=== PATIENT | male | born 1980 | race Two or more races ===

== ENCOUNTER 2019-08-22 13:04 | Emergency (ER) | payer SELFPAY ==
[~2019-08-22] VITALS: Ht 175.3 cm; Wt 107.7 kg
[2019-08-22] MEDS ORDERED: MVI, ADULT NO.4 WITH VIT K 10 ML, FOLIC ACID INJ 1 MG, THIAMINE INJ 100 MG in IV NORMAL... IV ONE ×4 (13:30)
[2019-08-22 13:47] LABS: BASO # 0.1 x10^3/uL (0.0-0.2); BASO % 1 % (0-3); EOS % 0 % (0-3); HEMATOCRIT 49.3 % (39.0-53.0); HEMOGLOBIN 16.9 g/dL (13.0-17.5); LYMPH # 3.1 x10^3/uL (1.0-4.8); LYMPH % 33 % (24-48); MEAN CORPUSCULAR HEMOGLOBIN 29 pg (25-35); MEAN CORPUSCULAR HGB CONC 34 g/dL (31-37); MEAN CORPUSCULAR VOLUME 85 fL (79-100); MONO # 0.4 x10^3/uL (0.0-1.1); MONO % 4 % (0-9); NEUT # 5.9 x10^3uL (1.8-7.7); NEUT % 62 % (31-73); PLATELET COUNT 320 x10^3/uL (140-400); RED BLOOD COUNT 5.84 x10^6/uL (4.30-5.70); RED CELL DISTRIBUTION WIDTH 14.5 % (11.5-14.5); WHITE BLOOD COUNT 9.4 x10^3/uL (4.0-11.0)
[2019-08-22 14:01] LABS: ACETAMIN < 2.0 mcg/mL (10-30); ETHANOL 370 mg/dL (0-10); SALIC 0.3 mg/dL (2.8-20.0)
[2019-08-22 14:46] LABS: BILIRUBIN,URINE NEG (NEG); CLARITY,URINE CLOUDY; COLOR,URINE AMBER; GLUCOSE,URINE NEG (NEG)
[2019-08-22 14:47] LABS: BACTERIA,URINE FEW /HPF (0-FEW); GRANULAR CASTS,URINE OCC /HPF; HYALINE CASTS, URINE FEW /HPF; NITRITE,URINE NEG (NEG); SQUAMOUS EPITHELIAL CELL,UR OCC /LPF; UROBILINOGEN,URINE 0.2 mg/dL (0.2 mg/dL)
[2019-08-22 14:48] LABS: AMPHETAMINE/METHAMPHETAMINE NEG (NEG); BARBITURATES NEG (NEG); BENZODIAZEPINES NEG (NEG); CANNABINOIDS POS (NEG); COCAINE NEG (NEG); METHADONE NEG (NEG); OPIATES NEG (NEG); PHENCYCLIDINE NEG (NEG)
[2019-08-22 15:10] VITALS: BP 158/124
[2019-08-22 15:13] LABS: CALCIUM 7.8 mg/dL (8.5-10.1); CREATININE 0.9 mg/dL (0.7-1.3); POTASSIUM 3.2 mmol/L (3.5-5.1)
[2019-08-22 15:17] LABS: ALBUMIN 3.4 g/dL (3.4-5.0); ALBUMIN/GLOBULIN RATIO 0.9 (1.0-1.7); TOTAL BILIRUBIN 0.4 mg/dL (0.2-1.0); TOTAL PROTEIN 7.3 g/dL (6.4-8.2)
--- NOTE | 2019-08-22 16:10 | PHYS DOC ---
Past History Past Medical History: Alcoholism Past Medical History Limited due to patient uncooperative/intoxicated Past Surgical History Limited due to patient uncooperative/intoxicated Alcohol Use: Heavy Social History Limited due to patient uncooperative/intoxicated Adult General Chief Complaint Chief Complaint: ALCOHOL INTOXICATION HPI HPI 39 year old male presents via EMS with report of acute intoxication/altered mental status after being found today. Patient apparently has been missing per his spouse for last 3 days. Patient not forthcoming with w here he has been, however he did reports history of ETOH abuse. Reports he drank "alot". Denies suicidal ideation. Denies history of DTs. Patient denies trauma. EMS denies seeing any signs of trauma as well. EMS reports prehospital glucose normal. HPI limited due to altered mental status/intoxication. Review of Systems Review of Systems Review of systems limited due to altered mental status/intoxication. Current Medications Current Medications Current Medications Medications (Trade) Dose Ordered Sig/Oniel Start Time Stop Time Status Last Admin Dose Admin Multivitamins/ Minerals 10 ml/ Folic Acid 1 mg/ Thiamine HCl 100 mg/Sodium Chloride 1,011.3 ml @ 1,000.187 mls/hr 1X ONCE 08/22/19 13:30 08/22/19 14:30 DC 08/22/19 14:15 1,000.187 MLS/HR Allergies Allergies Allergies Coded Allergies Type Severity Reaction Last Updated Verified No Known Drug Allergies 08/22/19 No Physical Exam Physical Exam Constitutional: Well developed, disheveled, no acute distress, non-toxic appearance HENT: Normocephalic, atraumatic, oropharynx moist. Eyes: Pupils dilated, EOMI, conjunctiva injected, no discharge, horizontal n ystagmus noted Neck: Normal range of motion, no tenderness, supple Cardiovascular: Heart rate tachycardic, regular rhythm Lungs & Thorax: Bilateral breath sounds clear to auscultation, no wheezes Abdomen: Soft, no tenderness Skin: Warm, dry, no erythema, no rash Extremities: No tenderness, ROM intact Neurologic: Alert and oriented to name only, appears intoxicated, moves all extremities and will follow commands and answer some questions, no focal deficits noted Psychologic: Affect obtunded, judgement poor Current Patient Data Vital Signs Vital Signs Date Time Temp Pulse Resp B/P (MAP) Pulse Ox O2 Delivery O2 Flow Rate FiO2 08/22/19 15:13 145 19 100 Room Air Lab Results Laboratory Tests Test 08/22/19 13:32 08/22/19 14:10 White Blood Count 9.4 x10^3/uL (4.0-11.0) Red Blood Count 5.84 x10^6/uL (4.30-5.70) H Hemoglobin 16.9 g/dL (13.0-17.5) Hematocrit 49.3 % (39.0-53.0) Mean Corpuscular Volume 85 fL (79-100) Mean Corpuscular Hemoglobin 29 pg (25-35) Mean Corpuscular Hemoglobin Concent 34 g/dL (31-37) Red Cell Distribution Width 14.5 % (11.5-14.5) Platelet Count 320 x10^3/uL (140-400) Neutrophils (%) (Auto) 62 % (31-73) Lymphocytes (%) (Auto) 33 % (24-48) Monocytes (%) (Auto) 4 % (0-9) Eosinophils (%) (Auto) 0 % (0-3) Basophils (%) (Auto) 1 % (0-3) Neutrophils # (Auto) 5.9 x10^3uL (1.8-7.7) Lymphocytes # (Auto) 3.1 x10^3/uL (1.0-4.8) Monocytes # (Auto) 0.4 x10^3/uL (0.0-1.1) Eosinophils # (Auto) 0.0 x10^3/uL (0.0-0.7) Basophils # (Auto) 0.1 x10^3/uL (0.0-0.2) Prothrombin Time 11.0 SEC (9.4-11.4) Prothrombin Time INR 1.1 (0.9-1.1) Activated Partial Thromboplast Time 26 SEC (23-33) Sodium Level 146 mmol/L (136-145) H Potassium Level 3.2 mmol/L (3.5-5.1) L Chloride Level 106 mmol/L (98-107) Carbon Dioxide Level 24 mmol/L (21-32) Anion Gap 16 (6-14) H Blood Urea Nitrogen 16 mg/dL (8-26) Creatinine 0.9 mg/dL (0.7-1.3) Estimated GFR (Cockcroft-Gault) 95.0 BUN/Creatinine Ratio 18 (6-20) Glucose Level 143 mg/dL (70-99) H Calcium Level 7.8 mg/dL (8.5-10.1) L Magnesium Level 2.0 mg/dL (1.8-2.4) Total Bilirubin 0.4 mg/dL (0.2-1.0) Aspartate Amino Transferase (AST) 43 U/L (15-37) H Alanine Aminotransferase (ALT) 85 U/L (16-63) H Alkaline Phosphatase 90 U/L (46-116) Creatine Kinase 89 U/L (39-308) Creatine Kinase MB (Mass) 1.0 ng/mL (0.0-3.6) Creatine Kinase MB Relative Index 1.1 % (0-4) Troponin I Quantitative 0.033 ng/mL (0-0.055) Total Protein 7.3 g/dL (6.4-8.2) Albumin 3.4 g/dL (3.4-5.0) Albumin/Globulin Ratio 0.9 (1.0-1.7) L Salicylates Level 0.3 mg/dL (2.8-20.0) L Salicylate Last Dose Date Unknown Salicylate Last Dose Time Unknown Acetaminophen Level < 2.0 mcg/mL (10-30) L Acetaminophen Last Dose Date Unknown Acetaminophen Last Dose Time Unknown Ethyl Alcohol Level 370 mg/dL (0-10) H Urine Collection Type Unknown Urine Color Melanie Urine Clarity Cloudy Urine pH 6.0 Urine Specific [place] >=1.030 Urine Protein >100 mg/dl (NEG-TRACE) Urine Glucose (UA) Neg mg/dL (NEG) Urine Ketones (Stick) Neg mg/dL (NEG) Urine Blood Small (NEG) Urine Nitrite Neg (NEG) Urine Bilirubin Neg (NEG) Urine Urobilinogen Dipstick 0.2 mg/dL (0.2 mg/dL) Urine Leukocyte Esterase Neg (NEG) Urine RBC 1-2 /HPF (0-2) Urine WBC 1-4 /HPF (0-4) Urine Squamous Epithelial Cells Occ /LPF Urine Bacteria Few /HPF (0-FEW) Urine Hyaline Casts Few /HPF Urine Granular Casts Occ /HPF Urine Mucus Mod /LPF Urine Opiates Screen Neg (NEG) Urine Methadone Screen Neg (NEG) Urine Barbiturates Neg (NEG) Urine Phencyclidine Screen Neg (NEG) Urine Amphetamine/Methamphetamine Neg (NEG) Urine Benzodiazepines Screen Neg (NEG) Urine Cocaine Screen Neg (NEG) Urine Cannabinoids Screen Pos (NEG) Urine Ethyl Alcohol Pos (NEG) EKG EKG @ 1328 Sinus tachycardia at 128bpm, NO ST elevation, QRS 86ms, QT/QTc 314/462ms, Q wave III Radiology/Procedures Radiology/Procedures [] Course & Med Decision Making Course & Med Decision Making Pertinent Labs studies reviewed. (See chart for details) Patient presents with via EMS with report of being "missing" per his for last 3 days. Patient brought to ED after being found and appears intoxicated. Patient reports he has "drank alot". Patient initially not forthcoming with history. Ultimately reports he has history of alcoholism and has been drinking "tequila". Denies suicidal ideation. Denies history of DTs. Banana bag provided. Labs obtained and posted to chart. Patient monitored in department. Discharge paperwork readied. Patient asked to call for a ride. Prior to discharge paperwork printed it was found that patient had gotten up to use restroom and subsequently eloped from department. At that time patient was clinically sober and with steady gait. Verbal instructions had been given to patient prior to his elopement including that he should seek ETOH and drug addiction clinic and seek help with his addictions. Patient acknowledged understanding and agreement. Unfortunately he did not receive discharge packet including these resource addresses and phone numbers. Dragon Disclaimer Dragon Disclaimer This electronic medical record was generated, in whole or in part, using a voice recognition dictation system. Departure Departure: Impression: Primary Impression: Alcohol abuse Additional Impression: Tetrahydrocannabinol (THC) use disorder, mild, abuse Disposition: 07 AGAINST MEDICAL ADVICE (Eloped) Condition: GUARDED Referrals: PCP,NO (PCP) Patient Instructions: Alcohol and Drug Addiction, Finding Treatment, Chronic Alcoholism, How Much is Too Much Alcohol, [id number] Additional Instructions: Please check yourself into a drug and alcohol rehab facility. Problem Qualifiers TOM HENLEY DO Aug 22, 2019 16:10
--- NOTE | 2019-08-22 17:30 | EKG ---
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
== END 2019-08-22 16:10 | disposition left against medical advice (07) ==
LOC: ER 13:04
DX: F10.10 Alcohol abuse, uncomplicated (principal); F15.10 Other stimulant abuse, uncomplicated; Y90.8 Blood alcohol level of 240 mg/100 ml or more
CPT/HCPCS: 36415; 80053; 80307; 80329; 81001; 82553; 83735; 84484; 85025; 85610; 85730; 93005; 96365; 99284; G0480; 82003; J7030

== ENCOUNTER 2019-11-20 15:23 | Emergency (ER) | payer OTHER ==
[~2019-11-20] VITALS: Ht 182.9 cm; Wt 107.3 kg
[2019-11-20 15:25] VITALS: BP 116/98
--- NOTE | 2019-11-20 15:44 | PHYS DOC ---
General Adult EDM: Chief Complaint: ALCOHOL INTOXICATION HPI: HPI: Patient is a 59-year-old alcoholic male who brought in by EMS because he could not pay for his room at the account of [facility]. Apparently his family will take him back home. He denies any suicidal or homicidal ideation. He states he drin ks heavily every day and today is no different than usual. [] Review of Systems: Review of Systems: Constitutional: Denies fever or chills Eyes: Denies change in visual acuity HENT: Denies nasal congestion or sore throat Respiratory: Denies cough or shortness of breath Cardiovascular: Denies chest pain or edema GI: Denies abdominal pain, nausea, vomiting, bloody stools or diarrhea : Denies dysuria Musculoskeletal: Denies back pain or joint pain Integument: Denies rash Neurologic: Denies headache, focal weakness or sensory changes Endocrine: Denies polyuria or polydipsia Lymphatic: Denies swollen glands Psychiatric: Reports alcoholism Heart Score: Risk Factors: Risk Factors: DM, Current or recent (<one month) smoker, HTN, HLP, family history of CAD, obesity. Risk Scores: Score 0 - 3: 2.5% MACE over next 6 weeks - Discharge Home Score 4 - 6: 20.3% MACE over next 6 weeks - Admit for Clinical Observation Score 7 - 10: 72.7% MACE over next 6 weeks - Early Invasive Strategies Allergies: Allergies: Allergies Coded Allergies Type Severity Reaction Last Updated Verified No Known Drug Allergies 11/20/19 No Physical Exam: PE: Constitutional: Well developed, well nourished, no acute distress, appears intoxicated e. [] HENT: Normocephalic, atraumatic, bilateral external ears normal, oropharynx moist, no oral exudates, nose normal. [] Eyes: PERRLA, EOMI, conjunctiva normal, no discharge. [] Neck: Normal range of motion, no tenderness, supple, no stridor. [] Cardiovascular:Heart rate regular rhythm, no murmur [] Lungs & Thorax: Bilateral breath sounds clear to auscultation [] Abdomen: Bowel sounds normal, soft, no tenderness, no masses, no pulsatile masses. [] Skin: Warm, dry, no erythema, no rash. [] Back: No tenderness, no CVA tenderness. [] Extremities: No tenderness, no cyanosis, no clubbing, ROM intact, no edema. [] Neurologic: Alert and oriented X 3, normal motor function, normal sensory function, no focal deficits noted. [] Psychologic: Depressed affect but denies suicidal or homicidal thoughts [] EKG: EKG: [] Radiology/Procedures: Radiology/Procedures: [] Course & Med Decision Making: Course & Med Decision Making Pertinent Labs and Imaging studies reviewed. (See chart for details) [ED course: Evaluation reveals a 59-year-old male who was intoxicated. It does not appear that he has any medical emergency today. It appears he is in his usual state of intoxication secondary to longstanding alcoholism.] Dragon Disclaimer: Dragon Disclaimer: This electronic medical record was generated, in whole or in part, using a voice recognition dictation system. Departure Departure: Impression: Primary Impression: Alcohol intoxication Qualified Codes: F10.920 - Alcohol use, unspecified with intoxication, uncomplicated Disposition: 01 HOME/RESIDENCE PRIOR TO ADM Condition: STABLE Referrals: PCP,NO (PCP) Patient Instructions: Alcohol Intoxication, Alcohol Problems, Chronic Alcoholism Additional Instructions: Return to the emergency department with any new or concerning symptoms BK MORALES DO November 20, 2019 15:44
== END 2019-11-20 17:29 | disposition home or self-care (01) ==
LOC: EDBD 15:23 → MERGE 15:23 → ER 15:23
DX: F10.920 Alcohol use, unspecified with intoxication, uncomplicated (principal); F32.9 Major depressive disorder, single episode, unspecified
CPT/HCPCS: 99283

== ENCOUNTER 2019-12-23 19:52 | Emergency (ER) | payer OTHER ==
[~2019-12-23] VITALS: Ht 175.3 cm; Wt 107.7 kg
[2019-12-23] MEDS ORDERED: MULTIVITAMIN with MINERAL TABLET. PO ONE (20:00)
[2019-12-23] MEDS ORDERED: FOLIC ACID 1 MG TABLET PO ONE (20:00)
[2019-12-23] MEDS ORDERED: THIAMINE 100 MG TABLET. PO ONE (20:00)
[2019-12-23] MEDS ORDERED: MVI, ADULT NO.4 WITH VIT K 10 ML, FOLIC ACID INJ 1 MG, THIAMINE INJ 100 MG in IV NORMAL... IV ONE ×4 (20:30)
[2019-12-23 20:31] LABS: BASO % 0 % (0-3); EOS % 0 % (0-3); HEMATOCRIT 40.4 % (39.0-53.0); LYMPH % 27 % (24-48); MEAN CORPUSCULAR HEMOGLOBIN 29 pg (25-35); MEAN CORPUSCULAR HGB CONC 35 g/dL (31-37); MEAN CORPUSCULAR VOLUME 84 fL (79-100); MONO # 0.5 x10^3/uL (0.0-1.1); MONO % 4 % (0-9); NEUT # 10.2 x10^3uL (1.8-7.7); NEUT % 69 % (31-73); PLATELET COUNT 301 x10^3/uL (140-400); RED BLOOD COUNT 4.83 x10^6/uL (4.30-5.70); RED CELL DISTRIBUTION WIDTH 14.9 % (11.5-14.5); WHITE BLOOD COUNT 14.7 x10^3/uL (4.0-11.0)
[2019-12-23 20:42] LABS: ANION GAP 13 (6-14); BLOOD UREA NITROGEN 16 mg/dL (8-26); CALCIUM 7.8 mg/dL (8.5-10.1); CARBON DIOXIDE 25 mmol/L (21-32); CHLORIDE 107 mmol/L (98-107); CREATININE 1.2 mg/dL (0.7-1.3); GFR 68.1; GLUCOSE 120 mg/dL (70-99); POTASSIUM 3.4 mmol/L (3.5-5.1); SODIUM 145 mmol/L (136-145)
[2019-12-23 20:48] LABS: ALBUMIN 3.7 g/dL (3.4-5.0); ALK PHOS 75 U/L (46-116); ALT (SGPT) 79 U/L (16-63); MAGNESIUM 2.3 mg/dL (1.8-2.4); TOTAL BILIRUBIN 0.4 mg/dL (0.2-1.0); TOTAL PROTEIN 7.4 g/dL (6.4-8.2)
[2019-12-23 20:53] LABS: DIRECT BILIRUBIN < 0.1 mg/dL (0.0-0.2)
[2019-12-23] MEDS ORDERED: THIAMINE 200 MG/2 ML VIAL. IV ONE (21:04)
[2019-12-23 21:11] LABS: AST (SGOT) 66 U/L (15-37)
[2019-12-23] MEDS ORDERED: IV NORMAL SALINE 1,000ML 1,000 ML IV ONE (21:30)
[2019-12-23 22:38] LABS: BARBITURATES NEG (NEG); BENZODIAZEPINES NEG (NEG); CANNABINOIDS NEG (NEG); COCAINE NEG (NEG); METHADONE NEG (NEG); OPIATES NEG (NEG); PHENCYCLIDINE NEG (NEG)
[2019-12-23 22:43] LABS: BILIRUBIN,URINE NEG (NEG); CLARITY,URINE CLEAR; COLOR,URINE YELLOW; GLUCOSE,URINE NEG (NEG); NITRITE,URINE NEG (NEG); RBC,URINE OCC /HPF (0-2); UROBILINOGEN,URINE 0.2 mg/dL (0.2 mg/dL)
[2019-12-23 22:44] LABS: BACTERIA,URINE 0 /HPF (0-FEW); HYALINE CASTS, URINE FEW /HPF; SQUAMOUS EPITHELIAL CELL,UR FEW /LPF
[2019-12-23 22:50] LABS: AMPHETAMINE/METHAMPHETAMINE NEG (NEG)
--- NOTE | 2019-12-24 02:09 | PHYS DOC ---
Past History Past Medical History: Alcoholism Additional Past Medical Histor: pt denies Past Surgical History: Other Additional Past Surgical Histo: pt denies Alcohol Use: Heavy General Adult EDM: Chief Complaint: ALCOHOL INTOXICATION HPI: HPI: Patient is a 39-year-old male who arrives via EMS with report of alcohol intoxication. Per EMS, patient did not go home last night and patient's indicated that he would typically go to a certain hotel where he would go drink. She went and found him at the hotel where he was unconscious. EMS indicates that he will respond to verbal stimuli but does not answer questions. [] Review of Systems: Review of Systems: Constitutional: No reported fever or chills Respiratory: No apparent shortness of breath GI: No reported vomiting Neurologic: Positive mental status changes Unable to fully assess review of systems due to patient mental state/level of intoxication Heart Score: Risk Factors: Risk Factors: DM, Current or recent (<one month) smoker, HTN, HLP, family history of CAD, obesity. Risk Scores: Score 0 - 3: 2.5% MACE over next 6 weeks - Discharge Home Score 4 - 6: 20.3% MACE over next 6 weeks - Admit for Clinical Observation Score 7 - 10: 72.7% MACE over next 6 weeks - Early Invasive Strategies Current Medications: Current Meds: Current Medications Medications (Trade) Dose Ordered Sig/Oniel Start Time Stop Time Status Last Admin Dose Admin Folic Acid (Folic Acid) 1 mg 1X ONCE 12/23/19 20:00 12/23/19 20:31 DC Multivitamins/ Calcium (Thera-M Plus) 1 tab 1X ONCE 12/23/19 20:00 12/23/19 20:31 DC Multivitamins/ Minerals 10 ml/ Folic Acid 1 mg/ Thiamine HCl 100 mg/Sodium Chloride 1,011.3 ml @ 1,000.187 mls/hr 1X ONCE 12/23/19 20:30 12/23/19 21:30 DC 12/23/19 21:10 1,000.187 MLS/HR Sodium Chloride 1,000 ml @ 1,000 mls/hr 1X ONCE 12/23/19 21:30 12/23/19 22:29 DC 12/23/19 21:11 1,000 MLS/HR Thiamine HCl (Thiamine Vial) 200 mg STK-MED ONCE 12/23/19 21:04 12/23/19 21:04 DC Thiamine HCl (Vitamin B-1) 100 mg 1X ONCE 12/23/19 20:00 12/23/19 20:31 DC Allergies: Allergies: Allergies Coded Allergies Type Severity Reaction Last Updated Verified No Known Drug Allergies 08/22/19 No Physical Exam: PE: Constitutional: Well developed, well nourished, no acute distress, non-toxic appearance. [] HENT: Normocephalic, atraumatic, bilateral external ears normal, oropharynx moist, no oral exudates, nose normal. [] Eyes: PERRLA, EOMI, conjunctiva normal, no discharge. [] Neck: Normal range of motion, no tenderness, supple, no stridor. [] Cardiovascular:Heart rate regular rhythm, no murmur [] Lungs & Thorax: Bilateral breath sounds clear to auscultation [] Abdomen: Bowel sounds normal, soft, no tenderness, no masses, no pulsatile masses. [] Skin: Warm, dry, no erythema, no rash. [] Extremities: No tenderness, no cyanosis, no clubbing, ROM intact, no edema. [] Neurologic: Somnolent but arousable to both verbal and painful stimuli, no obvious focal deficits noted. [] Current Patient Data: Labs: Laboratory Tests Test 12/23/19 20:05 12/23/19 22:15 White Blood Count 14.7 x10^3/uL (4.0-11.0) H Red Blood Count 4.83 x10^6/uL (4.30-5.70) Hemoglobin 14.0 g/dL (13.0-17.5) Hematocrit 40.4 % (39.0-53.0) Mean Corpuscular Volume 84 fL (79-100) Mean Corpuscular Hemoglobin 29 pg (25-35) Mean Corpuscular Hemoglobin Concent 35 g/dL (31-37) Red Cell Distribution Width 14.9 % (11.5-14.5) H Platelet Count 301 x10^3/uL (140-400) Neutrophils (%) (Auto) 69 % (31-73) Lymphocytes (%) (Auto) 27 % (24-48) Monocytes (%) (Auto) 4 % (0-9) Eosinophils (%) (Auto) 0 % (0-3) Basophils (%) (Auto) 0 % (0-3) Neutrophils # (Auto) 10.2 x10^3uL (1.8-7.7) H Lymphocytes # (Auto) 4.0 x10^3/uL (1.0-4.8) Monocytes # (Auto) 0.5 x10^3/uL (0.0-1.1) Eosinophils # (Auto) 0.0 x10^3/uL (0.0-0.7) Basophils # (Auto) 0.0 x10^3/uL (0.0-0.2) Sodium Level 145 mmol/L (136-145) Potassium Level 3.4 mmol/L (3.5-5.1) L Chloride Level 107 mmol/L (98-107) Carbon Dioxide Level 25 mmol/L (21-32) Anion Gap 13 (6-14) Blood Urea Nitrogen 16 mg/dL (8-26) Creatinine 1.2 mg/dL (0.7-1.3) Estimated GFR (Cockcroft-Gault) 68.1 Glucose Level 120 mg/dL (70-99) H Calcium Level 7.8 mg/dL (8.5-10.1) L Magnesium Level 2.3 mg/dL (1.8-2.4) Total Bilirubin 0.4 mg/dL (0.2-1.0) Direct Bilirubin < 0.1 mg/dL (0.0-0.2) Aspartate Amino Transferase (AST) 66 U/L (15-37) H Alanine Aminotransferase (ALT) 79 U/L (16-63) H Alkaline Phosphatase 75 U/L (46-116) Total Protein 7.4 g/dL (6.4-8.2) Albumin 3.7 g/dL (3.4-5.0) Ethyl Alcohol Level 447 mg/dL (0-10) *H Urine Collection Type Unknown Urine Color Yellow Urine Clarity Clear Urine pH 6.0 Urine Specific [place] 1.010 Urine Protein 100 mg/dl (NEG-TRACE) Urine Glucose (UA) Neg mg/dL (NEG) Urine Ketones (Stick) Neg mg/dL (NEG) Urine Blood Trace (NEG) Urine Nitrite Neg (NEG) Urine Bilirubin Neg (NEG) Urine Urobilinogen Dipstick 0.2 mg/dL (0.2 mg/dL) Urine Leukocyte Esterase Neg (NEG) Urine RBC Occ /HPF (0-2) Urine WBC 1-4 /HPF (0-4) Urine Squamous Epithelial Cells Few /LPF Urine Bacteria 0 /HPF (0-FEW) Urine Hyaline Casts Few /HPF Urine Opiates Screen Neg (NEG) Urine Methadone Screen Neg (NEG) Urine Barbiturates Neg (NEG) Urine Phencyclidine Screen Neg (NEG) Urine Amphetamine/Methamphetamine Neg (NEG) Urine Benzodiazepines Screen Neg (NEG) Urine Cocaine Screen Neg (NEG) Urine Cannabinoids Screen Neg (NEG) Urine Ethyl Alcohol Pos (NEG) Vital Signs: Vital Signs Date Time Temp Pulse Resp B/P (MAP) Pulse Ox O2 Delivery O2 Flow Rate FiO2 12/23/19 19:52 98.5 120 18 124/73 (90) 87 Room Air EKG: EKG: [] Radiology/Procedures: Radiology/Procedures: [] Course & Med Decision Making: Course & Med Decision Making Pertinent Labs and Imaging studies reviewed. (See chart for details) [] Dragon Disclaimer: Dragon Disclaimer: This electronic medical record was generated, in whole or in part, using a voice recognition dictation system. Departure Departure: Impression: Primary Impression: Acute alcohol intoxication Qualified Codes: F10.920 - Alcohol use, unspecified with intoxication, uncomplicated Disposition: 01 HOME/RESIDENCE PRIOR TO ADM Condition: STABLE Referrals: PCP,NO (PCP) Patient Instructions: Alcohol Intoxication Justification of Admission: Justification of Admission: Justification of Admission Dx: Comment: (Not applicable) PUNEET NUNEZ Jr. DO Dec 24, 2019 02:08
[2019-12-24 02:45] VITALS: BP 162/110
== END 2019-12-24 02:15 | disposition home or self-care (01) ==
LOC: ER 19:52
DX: F10.229 Alcohol dependence with intoxication, unspecified (principal); Y90.8 Blood alcohol level of 240 mg/100 ml or more
CPT/HCPCS: 36415; 80048; 80076; 80307; 81001; 83735; 85025; 96365; 99285; G0480; J7030

== ENCOUNTER 2020-02-07 04:25 | Emergency (ER) | payer OTHER ==
[~2020-02-07] VITALS: Ht 175.3 cm; Wt 105.0 kg
--- NOTE | 2020-02-07 04:32 | PHYS DOC ---
Past History Past Medical History: Alcoholism Additional Past Medical Histor: pt denies Past Surgical History: Other Additional Past Surgical Histo: pt denies Smoking: Cigarettes Alcohol Use: Heavy General Adult EDM: Chief Complaint: ALCOHOL INTOXICATION HPI: HPI: "..I was drinking heavy....[facility].. and I was walking home... " I got tired..." " I went [facility] [employer] " Then some one called the police....".."They called ...ambulance...now...I am here..." " I can't get anyone to come .. and pick...me up...my ..phone is ..." Patient is a 39 year old male who presents with above hx and complaints recent heavy alcohol use and reportedly discharge from the [facility]. Patient per paramedics [facility] and complained of increased shortness of breath. Pt. PD referral to Paramedics. Pt. last seen in our ED on 12/23/19 for Alcohol Intoxication. ETOH level on that visit was 447. Patient is a little slow to answer questions. Patient denies any trauma. Patient denies any recent travel outside the [place] area. Patient denies any fever or chills. Patient now states he is not short of breath. Patient denies any pain. Patient does admit to heavy alcohol use. Patient does smoke cigarettes. Patient denies illicit drug use. Patient denies cardiac history. Review of Systems: Review of Systems: Constitutional: Denies fever or chills Eyes: Denies change in visual acuity HENT: Denies nasal congestion or sore throat Respiratory: Denies cough or shortness of breath Cardiovascular: Denies chest pain or edema GI: Denies abdominal pain, nausea, vomiting, bloody stools or diarrhea : Denies dysuria Musculoskeletal: Denies back pain or joint pain Integument: Denies rash Neurologic: Denies headache, focal weakness or sensory changes Endocrine: Denies polyuria or polydipsia Lymphatic: Denies swollen glands Psychiatric: Denies depression or anxiety Heart Score: HEART Score for Chest Pain: HEART Score for Chest Pain Response (Comments) Value History Slighlty/Non-Suspicious 0 ECG Nonspecific Repolarizatio 1 Age < 45 0 Risk Factors 1 or 2 Risk Factors 1 Troponin < Normal Limit 0 Total 2 Risk Factors: Risk Factors: DM, Current or recent (<one month) smoker, HTN, HLP, family history of CAD, obesity. Risk Scores: Score 0 - 3: 2.5% MACE over next 6 weeks - Discharge Home Score 4 - 6: 20.3% MACE over next 6 weeks - Admit for Clinical Observation Score 7 - 10: 72.7% MACE over next 6 weeks - Early Invasive Strategies Family History: Family History: Noncontributory to presentation Current Medications: Current Meds: See nursing for home meds Allergies: Allergies: Allergies Coded Allergies Type Severity Reaction Last Updated Verified No Known Drug Allergies 08/22/19 No Physical Exam: PE: Constitutional: , no acute distress,intoxicated in appearance. [] HENT: Normocephalic, atraumatic, bilateral external ears normal, oropharynx dry, no oral exudates, nose normal. [] Eyes: PERRLA, EOMI, conjunctiva normal, no discharge. [] Neck: Normal range of motion, no tenderness, supple, no stridor. [] Cardiovascular: Tachycardia heart rate regular rhythm, no murmur [] Lungs & Thorax: Bilateral breath sounds equal apex with few scattered wheezes on auscultation [] Abdomen: Bowel sounds normal, soft, no tenderness, no masses, no pulsatile masses. [] Skin: Warm, dry, no erythema, no rash. [] Back: No tenderness, no CVA tenderness. [] Extremities: No tenderness, no cyanosis, no clubbing, ROM intact, no edema. [] Neurologic: Alert and oriented X 3, moves all extremities on request, has distal sensory,, no gross focal deficits noted. [] Slightly wide gait. Psychologic: Affect flat, judgement normal, mood normal. [] EKG: EKG: My interpretation of EKG shows a sinus tachycardia 103 bpm. Some nonspecific T wave changes but no findings of acute STEMI with contralateral changes [] Radiology/Procedures: Radiology/Procedures: [][address] [address] IMAGING REPORT Signed PATIENT: IGGY BURTON ACCOUNT: [id number] : 1980 LOCATION: ER AGE: 39 SEX: M EXAM STATUS: REG ER ORD. PHYSICIAN: JYOTI ASHRAF MD REASON: dyspnea PROCEDURE: PORTABLE CHEST 1V INDICATION: Reason: dyspnea / Spl. Instructions: / History: COMPARISON: None. FINDINGS: Single view of chest obtained. No focal airspace consolidation. Cardiomediastinal contour unremarkable. No acute osseous abnormality. IMPRESSION: * No focal airspace consolidation or edema. Electronically signed by: Israel Gonzalez MD (02/07/2020 5:20 AM) [id number] DICTATED AND SIGNED BY: ISRAEL GONZALEZ MD DATE: 02/07/20519 CC: JYOTI ASHRAF MD; PCP,NO ~ Course & Med Decision Making: Course & Med Decision Making Pertinent Labs and Imaging studies reviewed. (See chart for details) Patient encouraged to reduce his alcohol intake. Patient take a multivitamin daily. Patient return if any concerns. Patient push fruit juices for his low potassium level. Patient review labs and work-up with his primary care. Patient to have his glucose rechecked on follow-up. Strongly encouraged patient to consider alcohol rehab program. Plan for patient to be discharged home after fluids and potassium supplementation. May be discharged earlier if he has a ride home Impression: 1. Hx of Alcoholism 2. Alcohol level tonight 308 3. Hypokalemia kalemia 3.1 4. Glucose 143 5. Mild elevation CK 695 [] Dragon Disclaimer: Dragon Disclaimer: This electronic medical record was generated, in whole or in part, using a voice recognition dictation system. Departure Departure: Disposition: 01 HOME/RESIDENCE PRIOR TO ADM Condition: STABLE Referrals: PCP,CONOR (PCP) Justification of Admission: Justification of Admission: Justification of Admission Dx: N/A Dragon Disclaimer This chart was dictated in whole or in part using Voice Recognition software in a busy, high-work load, and often noisy Emergency Department environment. It may contain unintended and wholly unrecognized errors or omissions. JYOTI ASHRAF MD Feb 07, 2020 04:32
[2020-02-07] MEDS ORDERED: FOLIC ACID 1 MG TABLET PO ONE (05:00)
[2020-02-07] MEDS ORDERED: MVI, ADULT NO.4 WITH VIT K 10 ML, THIAMINE INJ 100 MG in IV RINGERS SOLUTION,LACTATED 1... IV ONE (05:00)
[2020-02-07 05:08] LABS: BASO # 0.1 x10^3/uL (0.0-0.2); BASO % 1 % (0-3); EOS % 0 % (0-3); HEMATOCRIT 44.8 % (39.0-53.0); HEMOGLOBIN 15.3 g/dL (13.0-17.5); LYMPH # 3.7 x10^3/uL (1.0-4.8); LYMPH % 38 % (24-48); MEAN CORPUSCULAR HEMOGLOBIN 28 pg (25-35); MEAN CORPUSCULAR HGB CONC 34 g/dL (31-37); MEAN CORPUSCULAR VOLUME 83 fL (79-100); MONO # 0.3 x10^3/uL (0.0-1.1); MONO % 3 % (0-9); NEUT # 5.6 x10^3uL (1.8-7.7); NEUT % 58 % (31-73); PLATELET COUNT 307 x10^3/uL (140-400); WHITE BLOOD COUNT 9.7 x10^3/uL (4.0-11.0)
[2020-02-07] MEDS ORDERED: DIPH,PERTUSS(ACELL),TET VAC/PF 0.5 ML SYRINGE. VAX IM ONE (05:08)
[2020-02-07] MEDS ORDERED: THIAMINE 200 MG/2 ML VIAL. IV ONE (05:10)
[2020-02-07 05:12] LABS: BARBITURATES NEG (NEG); BENZODIAZEPINES NEG (NEG); CANNABINOIDS NEG (NEG); COCAINE NEG (NEG); METHADONE NEG (NEG); OPIATES NEG (NEG); PHENCYCLIDINE NEG (NEG)
[2020-02-07 05:13] LABS: BACTERIA,URINE 0 /HPF (0-FEW); BILIRUBIN,URINE NEG (NEG); CLARITY,URINE CLEAR; COLOR,URINE YELLOW; GLUCOSE,URINE NEG (NEG); HYALINE CASTS, URINE OCC /HPF; NITRITE,URINE NEG (NEG); RBC,URINE 0 /HPF (0-2); SQUAMOUS EPITHELIAL CELL,UR OCC /LPF; UROBILINOGEN,URINE 0.2 mg/dL (0.2 mg/dL); WBC,URINE OCC /HPF (0-4)
[2020-02-07 05:15] LABS: AMPHETAMINE/METHAMPHETAMINE NEG (NEG); CALCIUM 8.1 mg/dL (8.5-10.1); CREATININE 1.3 mg/dL (0.7-1.3); GFR 62.1; POTASSIUM 3.1 mmol/L (3.5-5.1)
--- NOTE | 2020-02-07 05:23 | RAD ---
INDICATION: Reason: dyspnea / Spl. Instructions: / History: COMPARISON: None. FINDINGS: Single view of chest obtained. No focal airspace consolidation. Cardiomediastinal contour unremarkable. No acute osseous abnormality. IMPRESSION: * No focal airspace consolidation or edema. Electronically signed by: Jacek Gonzalez MD (02/07/2020 5:20 AM) [id number]
[2020-02-07 05:27] LABS: ALBUMIN 3.8 g/dL (3.4-5.0); DIRECT BILIRUBIN 0.2 mg/dL (0.0-0.2); MAGNESIUM 2.3 mg/dL (1.8-2.4); TOTAL BILIRUBIN 0.5 mg/dL (0.2-1.0); TOTAL PROTEIN 7.5 g/dL (6.4-8.2)
--- NOTE | 2020-02-07 05:59 | EKG ---
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
[2020-02-07 06:14] VITALS: BP 140/82
[2020-02-07] MEDS ORDERED: MAGNESIUM HYDROXIDE 2,400 MG/30 ML ORAL.SUSP. PO ONE (06:15)
[2020-02-07] MEDS ORDERED: POTASSIUM CHLORIDE 20 MEQ TABLET.ER. PO ONE (06:15)
== END 2020-02-07 06:45 | disposition home or self-care (01) ==
LOC: ER 04:25
DX: E87.6 Hypokalemia (principal); R79.89 Other specified abnormal findings of blood chemistry; F10.20 Alcohol dependence, uncomplicated; F17.210 Nicotine dependence, cigarettes, uncomplicated; Y90.8 Blood alcohol level of 240 mg/100 ml or more
CPT/HCPCS: 36415; 71045; 80048; 80076; 80307; 81001; 82550; 83690; 83735; 83880; 84443; 84484; 85025; 85610; 85730; 93005; 96365; 96366; 99285; G0480; J7120

== ENCOUNTER 2020-02-13 12:15 | Emergency (ER) | payer OTHER ==
[~2020-02-13] VITALS: Ht 175.3 cm; Wt 103.8 kg
[2020-02-13 12:37] LABS: BASO # 0.1 x10^3/uL (0.0-0.2); BASO % 1 % (0-3); EOS % 0 % (0-3); HEMATOCRIT 38.9 % (39.0-53.0); HEMOGLOBIN 13.4 g/dL (13.0-17.5); LYMPH # 1.7 x10^3/uL (1.0-4.8); LYMPH % 18 % (24-48); MEAN CORPUSCULAR HEMOGLOBIN 29 pg (25-35); MEAN CORPUSCULAR HGB CONC 34 g/dL (31-37); MEAN CORPUSCULAR VOLUME 83 fL (79-100); MONO # 0.2 x10^3/uL (0.0-1.1); MONO % 2 % (0-9); NEUT # 7.2 x10^3uL (1.8-7.7); NEUT % 79 % (31-73); PLATELET COUNT 132 x10^3/uL (140-400); RED BLOOD COUNT 4.68 x10^6/uL (4.30-5.70); RED CELL DISTRIBUTION WIDTH 14.7 % (11.5-14.5); WHITE BLOOD COUNT 9.1 x10^3/uL (4.0-11.0)
[2020-02-13] MEDS ORDERED: ONDANSETRON PF 4 MG/2 ML VIAL. ONE (12:40)
[2020-02-13 12:46] LABS: CALCIUM 8.8 mg/dL (8.5-10.1); CREATININE 1.5 mg/dL (0.7-1.3); GFR 52.7; POTASSIUM 3.4 mmol/L (3.5-5.1)
[2020-02-13] MEDS: IOHEXOL 300 MG/ML 75 ML VIAL. IV ONE (12:47)
[2020-02-13 12:52] LABS: ALBUMIN 3.7 g/dL (3.4-5.0); ALBUMIN/GLOBULIN RATIO 0.9 (1.0-1.7); TOTAL BILIRUBIN 1.1 mg/dL (0.2-1.0)
--- NOTE | 2020-02-13 13:08 | RAD ---
CHEST AP ONLY History: Shortness of breath Comparison: February 07, 2020 Findings: 2 AP views of the chest are submitted. Heart size is within normal limits. There is no new lobar infiltrate, pleural fluid, or pneumothorax. Impression: 1. There is no radiographic evidence of acute cardiopulmonary disease. Electronically signed by: Anders Che MD (02/13/2020 1:05 PM) [id number]
[2020-02-13] MEDS: FAMOTIDINE 20 MG/2 ML VIAL IVP ONE (14:06)
--- NOTE | 2020-02-13 14:34 | RAD ---
CT ANGIO CHEST W ABD PEL W/ Indication: Shortness of breath, vomiting, GI bleed, alcohol abuse Technique: Postcontrast CT imaging was performed of the chest, abdomen, pelvis, multiplanar reconstruction images to include MIP reconstruction images are submitted. No oral contrast was given per One or more of the following individualized dose reduction techniques were utilized for this examination: 1. Automated exposure control 2. Adjustment of the mA and/or kV according to patient size 3. Use of iterative reconstruction technique. Comparison: None Chest: Findings: Contrast bolus in the pulmonary arteries is suboptimal and there is some motion degradation. No central pulmonary embolism is evident main pulmonary arteries although would be difficult to exclude some smaller more peripheral emboli exam such as of the left lower lobe image 84 series 4 and superior left lower lobe such as seen image 60 series 4. There is no infiltrate, pleural or pericardial fluid, or pneumothorax. There is a small lingular nodule about 0.2 cm image 92 series 4 less likely be of clinical significance in a patient this age. Thoracic aortic caliber is within normal limits, no dissection flap. There is bilateral gynecomastia. IMPRESSION: 1. No central pulmonary embolism is identified in the main pulmonary arteries although limitations of exam, cannot accurately exclude small emboli. 2. There is bilateral gynecomastia. Abdomen pelvis FINDINGS: Contrast bolus in the arteries is suboptimal. Celiac, superior mesenteric, single left renal artery, and duplicated right renal arteries are patent. Inferior mesenteric artery is patent. Abdominal aortic caliber is within normal limits, no dissection flap. Normal caliber appendix is visualized without adjacent inflammatory change. There is appearance of degree of wall thickening of the ascending colon to the hepatic flexure, also segments of the more distal descending colon to mid sigmoid colon. There is minimal diverticulosis of the sigmoid colon. Mild small proximal small bowel wall thickening is also difficult to exclude. Segments of proximal small bowel are more distended about 3.2 cm. There is no free fluid or free air. Gallbladder is present without obvious intraluminal abnormality by CT. There is diffuse hepatic steatosis. No focal abnormality is identified of the pancreas or normal sized spleen. There is no adrenal nodularity. IMPRESSION: 1. There is appearance of degree of wall prominence of the ascending colon and questionably of the distal descending colon to the mid sigmoid colon, could be seen with colitis in the appropriate clinical setting, limited evaluation of bowel without oral contrast. Proximal small bowel thickening as could be seen with enteritis is also not excluded. 2. There is diffuse hepatic steatosis. Results were discussed with RACHELLE LEIJA at 02/13/2020 2:30 PM. Electronically signed by: Anders Che MD (02/13/2020 2:31 PM) [id number]
[2020-02-13 15:10] LABS: HEMATOCRIT 38.2 % (39.0-53.0); HEMOGLOBIN 12.9 g/dL (13.0-17.5); RED BLOOD COUNT 4.57 x10^6/uL (4.30-5.70); RED CELL DISTRIBUTION WIDTH 14.9 % (11.5-14.5); WHITE BLOOD COUNT 8.2 x10^3/uL (4.0-11.0)
[2020-02-13 16:38] VITALS: BP 172/92
[2020-02-13] MEDS: chlordiazePOXIDE HCL 25 MG CAPSULE PO ONE (16:45)
--- NOTE | 2020-02-14 08:00 | PHYS DOC ---
Past History Past Medical History: No Pertinent History Additional Past Medical Histor: pt denies Past Surgical History: No Surgical History Additional Past Surgical Histo: pt denies Smoking: Cigarettes Alcohol Use: Heavy Adult General Chief Complaint Chief Complaint: ABDOMINAL PAIN HPI HPI Patient is a 39 year old male who presents with hemoptysis. Patient states that he is a chronic alcoholic but he has been trying to cut down. His last drink was sometime in the early hours this morning. He is not sure if he has been through withdrawal previously. He states that he feels nauseous, has diffuse abdominal and chest pain, and had an episode of hemoptysis. He states that he vomited all night but then his last episode of vomiting was dark red blood. He is never had this previously. He does not have a history of varices that he is aware of. He states that the pain in his abdomen is crampy and achy. The pain in his chest feels like pressure. Review of Systems Review of Systems General: Reports chills, sweats Eyes: Denies drainage, blurred vision, eye redness HENT: Denies rhinorrhea, sore throat, earache Respiratory: Denies cough, shortness of breath, wheezing Cardiac: Denies edema, palpitations. Reports chest pain GI: Reports abdominal pain, Nausea, vomiting MSK: Denies back pain, neck pain Skin: Denies rash, jaundice Neuro: Denies headache, dizziness Psychiatric: Denies SI/HI reports anxiety Current Medications Current Medications Current Medications Medications (Trade) Dose Ordered Sig/Oniel Start Time Stop Time Status Last Admin Dose Admin Chlordiazepoxide (Librium) 50 mg 1X ONCE 02/13/20 16:45 02/13/20 16:46 DC 02/13/20 16:45 50 MG Famotidine (Pepcid Vial) 20 mg 1X ONCE 02/13/20 13:45 02/13/20 13:46 DC 02/13/20 14:06 20 MG Iohexol (Omnipaque 300 Mg/ml) 75 ml 1X ONCE 02/13/20 12:30 02/13/20 12:31 DC 02/13/20 12:47 75 ML Ondansetron HCl (Zofran) 4 mg STK-MED ONCE 02/13/20 12:40 02/13/20 12:41 DC Allergies Allergies Allergies Coded Allergies Type Severity Reaction Last Updated Verified No Known Drug Allergies 02/07/20 No Physical Exam Physical Exam General: Awake, alert, mild distress. Well Nourished, ill-appearing HEENT: Atraumatic, EOMI, PERRL, airway patent Neck: Supple, trachea midline Respiratory: CTA bilaterally, normal effort, no wheezing/crackles CV: Regular rhythm, tachycardia, no murmur, cap refill <2 GI: Soft, mild distention, diffusely tender MSK: No obvious deformities Skin: Warm, dry, intact Neuro: A&O x3, speech NL, sensory and motor grossly intact, no focal deficits, tremors Psych: Anxious, not suicidal or homicidal Current Patient Data Vital Signs Vital Signs Date Time Temp Pulse Resp B/P (MAP) Pulse Ox O2 Delivery O2 Flow Rate FiO2 02/13/20 16:38 119 16 172/92 (118) 98 Room Air 02/13/20 12:25 98.4 Lab Results Laboratory Tests Test 02/13/20 12:18 02/13/20 15:00 White Blood Count 9.1 x10^3/uL (4.0-11.0) 8.2 x10^3/uL (4.0-11.0) Red Blood Count 4.68 x10^6/uL (4.30-5.70) 4.57 x10^6/uL (4.30-5.70) Hemoglobin 13.4 g/dL (13.0-17.5) 12.9 g/dL (13.0-17.5) L Hematocrit 38.9 % (39.0-53.0) L 38.2 % (39.0-53.0) L Mean Corpuscular Volume 83 fL (79-100) 84 fL (79-100) Mean Corpuscular Hemoglobin 29 pg (25-35) 28 pg (25-35) Mean Corpuscular Hemoglobin Concent 34 g/dL (31-37) 34 g/dL (31-37) Red Cell Distribution Width 14.7 % (11.5-14.5) H 14.9 % (11.5-14.5) H Platelet Count 132 x10^3/uL (140-400) L 117 x10^3/uL (140-400) L Neutrophils (%) (Auto) 79 % (31-73) H Lymphocytes (%) (Auto) 18 % (24-48) L Monocytes (%) (Auto) 2 % (0-9) Eosinophils (%) (Auto) 0 % (0-3) Basophils (%) (Auto) 1 % (0-3) Neutrophils # (Auto) 7.2 x10^3uL (1.8-7.7) Lymphocytes # (Auto) 1.7 x10^3/uL (1.0-4.8) Monocytes # (Auto) 0.2 x10^3/uL (0.0-1.1) Eosinophils # (Auto) 0.0 x10^3/uL (0.0-0.7) Basophils # (Auto) 0.1 x10^3/uL (0.0-0.2) Prothrombin Time 10.4 SEC (9.4-11.4) Prothrombin Time INR 1.0 (0.9-1.1) Activated Partial Thromboplast Time 27 SEC (23-33) Sodium Level 136 mmol/L (136-145) Potassium Level 3.4 mmol/L (3.5-5.1) L Chloride Level 94 mmol/L (98-107) L Carbon Dioxide Level 22 mmol/L (21-32) Anion Gap 20 (6-14) H Blood Urea Nitrogen 9 mg/dL (8-26) Creatinine 1.5 mg/dL (0.7-1.3) H Estimated GFR (Cockcroft-Gault) 52.7 BUN/Creatinine Ratio 6 (6-20) Glucose Level 104 mg/dL (70-99) H Calcium Level 8.8 mg/dL (8.5-10.1) Total Bilirubin 1.1 mg/dL (0.2-1.0) H Aspartate Amino Transferase (AST) 145 U/L (15-37) H Alanine Aminotransferase (ALT) 88 U/L (16-63) H Alkaline Phosphatase 77 U/L (46-116) Total Protein 8.0 g/dL (6.4-8.2) Albumin 3.7 g/dL (3.4-5.0) Albumin/Globulin Ratio 0.9 (1.0-1.7) L Lipase 225 U/L (73-393) Ethyl Alcohol Level 24 mg/dL (0-10) H EKG EKG [] Radiology/Procedures Radiology/Procedures [] Course & Med Decision Making Course & Med Decision Making Pertinent Labs and Imaging studies reviewed. (See chart for details) Patient is a 39-year-old male who presents to the emergency room with hematemesis. Patient is tachycardic at this time. However he is also hypertensive and has tremors. It is possible this tachycardia is due to alcohol withdrawal. Alcohol level is only 24 at this time. CBC, CMP, coags, UA, CT chest abdomen pelvis were ordered to evaluate for perforated viscus or GI bleed. CT does not show any significant pathology at this time. Patient was given Pepcid here in the emergency room. I have discussed the case with the GI physician at [facility] who will evaluate the patient. Patient will be transferred for higher level of care. At this time hemoglobin is stable. He was given Librium for withdrawal. Dragon Disclaimer Dragon Disclaimer This electronic medical record was generated, in whole or in part, using a voice recognition dictation system. Departure Departure: Impression: Primary Impression: GI bleed Additional Impression: Alcohol withdrawal Disposition: 05 TRANSFER OTHER Condition: STABLE Referrals: PCP,NO (PCP) Justification of Admission: Justification of Admission: Justification of Admission Dx: Yes Problem Qualifiers RACHELLE LEIJA MD Feb 14, 2020 08:00
== END 2020-02-13 18:00 | disposition short-term general hospital (02) ==
LOC: ER 12:15
DX: K92.2 Gastrointestinal hemorrhage, unspecified (principal); F10.239 Alcohol dependence with withdrawal, unspecified; F17.210 Nicotine dependence, cigarettes, uncomplicated; Y90.1 Blood alcohol level of 20-39 mg/100 ml
CPT/HCPCS: 36415; 71045; 71275; 74177; 80053; 83690; 85025; 85027; 85610; 85730; 96374; 99285; G0480; J3490; Q9967

== ENCOUNTER 2020-07-18 19:49 | Inpatient (IN) | payer OTHER ==
[~2020-07-18] VITALS: Ht 180.3 cm; Wt 109.0 kg
--- NOTE | 2020-07-18 19:56 | PHYS DOC ---
Past History Past Medical History: No Pertinent History, Anxiety Additional Past Medical Histor: pt denies Past Surgical History: No Surgical History Additional Past Surgical Histo: pt denies Smoking: Cigarettes Alcohol Use: Heavy General Adult HPI: HPI: "..I was in for a follow up with Dr. Combs.. I had alcohol withd shiva...problems about 6 months ago.. I was a heavy drinker.. 1 liter a day tequila..or . hard alcohol daily... But I have not drank since then....but I seen in clinic.. they did some labs.. and called me to come in and get a blood transfusion.. I ve never had to get a transfusion before.. I ve been feeling really tire.. fatigued..." Patient is a 40 year old male who presents with above hx and complaints of fatigue, weakness, and malaise. Patient states he has not drank any alcohol for 5 months now. Patient has noticed some bright red blood with hard stools. Has had no dark or tarry stools. Patient not had history of GI bleed prior. Patient gives no history of esophageal varices. Patient does have history of previous episodes of intake of alcohol to excess. Patient normally follows with Dr. Diallo for care. Last ED eval for alcohol abuse was 02/07/2020. Pt. refer to ED because of abnormal labs collected in office today. No history of fever. No history of immunosuppression. Denies specific ill contacts. No change in meds. No history of tarry stools. No history of stomach upset. Review of Systems: Review of Systems: Constitutional: Denies fever or chills Eyes: Denies change in visual acuity HENT: Denies nasal congestion or sore throat Respiratory: Denies cough or shortness of breath Cardiovascular: Denies chest pain or edema GI: Denies abdominal pain, nausea, vomiting, bloody stools or diarrhea : Denies dysuria Musculoskeletal: Complaints of fatigue, weakness malaise Integument: Denies rash Neurologic: Denies headache, focal weakness or sensory changes Endocrine: Denies polyuria or polydipsia Lymphatic: Denies swollen glands Psychiatric: Denies depression or anxiety Family History: Family History: Noncontributory Current Medications: Current Meds: See nursing for home meds Allergies: Allergies: Allergies Coded Allergies Type Severity Reaction Last Updated Verified No Known Drug Allergies 02/07/20 No Physical Exam: PE: Constitutional:, no acute distress, non-toxic appearance. [] HENT: Normocephalic, atraumatic, bilateral external ears normal, oropharynx moist, no oral exudates, nose normal. [] Eyes: PERRLA, EOMI, conjunctiva pale, no discharge. [] Neck: Normal range of motion, no tenderness, supple, no stridor. [] Cardiovascular: Tachycardia heart rate regular rhythm, no murmur [] Lungs & Thorax: Bilateral breath sounds clear to auscultation [] Abdomen: Bowel sounds normal, soft, no tenderness, no masses, no pulsatile masses. No start stools noted during ED visit. Declines rectal at this time. Skin: Warm, dry, no erythema, no rash. Pale, Back: No tenderness, no CVA tenderness. [] Extremities: No tenderness, no cyanosis, no clubbing, ROM intact, no edema. [] Neurologic: Alert and oriented X 3, normal motor function, normal sensory function, no focal deficits noted. [] Psychologic: Affect anxious, judgement normal, mood normal. [] EKG: EKG: My interpretation EKG shows a sinus tachycardia 112 bpm. No findings acute morphology [] Radiology/Procedures: Radiology/Procedures: [][place] [id number] IMAGING REPORT Signed PATIENT: IGGY BURTON ACCOUNT: [id number] : 1980 LOCATION: ER AGE: 40 SEX: M EXAM STATUS: REG ER ORD. PHYSICIAN: JYOTI ASHRAF MD REASON: weak, gi c/o, bloody diarrhea for months PROCEDURE: ACUTE ABDOMEN SERIES XR ABDOMEN COMP ACUTE History: Reason: weak, gi c/o, bloody diarrhea for months / Spl. Instructions: / History: Technique: Supine and upright views of the abdomen. Comparison: None. Findings: Linear left basilar opacity, may represent atelectasis or scarring. No pleural effusion. No pneumothorax. Normal heart size. No pneumoperitoneum. Nondilated air-filled loops of small bowel within the right lower abdomen. Air and stool scattered throughout the imaged colon. Mild distention of the stomach. Impression: 1. Nonspecific nonobstructed bowel gas pattern. Electronically signed by: Osbaldo Rachel DO (07/18/2020 9:04 PM) [facility] DICTATED AND SIGNED BY: OSBALDO RACHEL DO DATE: 07/18/202102 CC: FRANCK COMBS MD; JYOTI ASHRAF MD ~MTH0 0 Heart Score: HEART Score for Chest Pain: HEART Score for Chest Pain Response (Comments) Value History Slighlty/Non-Suspicious 0 ECG Normal 0 Age < 45 0 Risk Factors 1 or 2 Risk Factors 1 Troponin < Normal Limit 0 Total 1 Risk Factors: Risk Factors: DM, Current or recent (<one month) smoker, HTN, HLP, family histo ry of CAD, obesity. Risk Scores: Score 0 - 3: 2.5% MACE over next 6 weeks - Discharge Home Score 4 - 6: 20.3% MACE over next 6 weeks - Admit for Clinical Observation Score 7 - 10: 72.7% MACE over next 6 weeks - Early Invasive Strategies Course & Med Decision Making: Course & Med Decision Making Pertinent Labs and Imaging studies reviewed. (See chart for details) Patient presentation, testing and treatment plan discussed with Dr. Combs. Patient to be admitted and transfused. If findings of acute bleed noted may need EGD or colonoscopy.. Currently no tarry stools. Suspect this is been a chronic problem due to the microcytic hypochromic findings. Impression: 1. Anemia hemoglobin 5.7., Microcytic hypochromic mcv64/mch 19 2. Fatigue, weakness, malaise 3. Hx. past Alcohol Abuse 4. Diabetes glucose 138 [] Dragon Disclaimer: Dragon Disclaimer: This electronic medical record was generated, in whole or in part, using a voice recognition dictation system. Departure Departure: Referrals: FRANCK COMBS MD (PCP) Dragon Disclaimer This chart was dictated in whole or in part using Voice Recognition software in a busy, high-work load, and often noisy Emergency Department environment. It may contain unintended and wholly unrecognized errors or omissions. Dragon Disclaimer This chart was dictated in whole or in part using Voice Recognition software in a busy, high-work load, and often noisy Emergency Department environment. It may contain unintended and wholly unrecognized errors or omissions. JYOTI ASHRAF MD Jul 18, 2020 19:56
[2020-07-18] MEDS ORDERED: diphenhydrAMINE 50 MG/ML VIAL IV ONE (20:00)
[2020-07-18] MEDS ORDERED: IV NORMAL SALINE 1,000ML 1,000 ML IV SCH (20:00)
[2020-07-18] MEDS ORDERED: FAMOTIDINE 20 MG/2 ML VIAL IVP ONE (20:00)
[2020-07-18] MEDS ORDERED: ACETAMINOPHEN 500 MG TABLET PO ONE (20:00)
[2020-07-18] MEDS ORDERED: IV RINGERS SOLUTION,LACTATED 1,000 ML IV SCH (20:00)
[2020-07-18 20:58] LABS: BASO % 1 % (0-3); EOS # 0.1 x10^3/uL (0.0-0.7); EOS % 1 % (0-3); LYMPH # 1.9 x10^3/uL (1.0-4.8); LYMPH % 31 % (24-48); MEAN CORPUSCULAR HEMOGLOBIN 19 pg (25-35); MEAN CORPUSCULAR HGB CONC 30 g/dL (31-37); MEAN CORPUSCULAR VOLUME 64 fL (79-100); MONO # 0.5 x10^3/uL (0.0-1.1); MONO % 7 % (0-9); NEUT # 3.8 x10^3uL (1.8-7.7); NEUT % 60 % (31-73); PLATELET COUNT 269 x10^3/uL (140-400); RED BLOOD COUNT 2.91 x10^6/uL (4.30-5.70); RED CELL DISTRIBUTION WIDTH 18.7 % (11.5-14.5); WHITE BLOOD COUNT 6.3 x10^3/uL (4.0-11.0)
[2020-07-18 21:02] LABS: HEMOGLOBIN 5.6 g/dL (13.0-17.5)
[2020-07-18 21:03] LABS: HEMATOCRIT 18.5 % (39.0-53.0)
--- NOTE | 2020-07-18 21:06 | RAD ---
XR ABDOMEN COMP ACUTE History: Reason: weak, gi c/o, bloody diarrhea for months / Spl. Instructions: / History: Technique: Supine and upright views of the abdomen. Comparison: None. Findings: Linear left basilar opacity, may represent atelectasis or scarring. No pleural effusion. No pneumotho rax. Normal heart size. No pneumoperitoneum. Nondilated air-filled loops of small bowel within the right lower abdomen. Air and stool scattered th roughout the imaged colon. Mild distention of the stomach. Impression: 1. Nonspecific nonobstructed bowel gas pattern. Electronically signed by: Osbaldo Rachel DO (07/18/2020 9:04 PM) [facility] [place]
--- NOTE | 2020-07-18 21:13 | EKG ---
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
[2020-07-18] MEDS ORDERED: ACETAMINOPHEN 325 MG TABLET PO PRN (21:15)
[2020-07-18] MEDS ORDERED: ONDANSETRON PF 4 MG/2 ML VIAL. IVP PRN (21:15)
[2020-07-18 21:16] LABS: CALCIUM 7.9 mg/dL (8.5-10.1); CREATININE 1.1 mg/dL (0.7-1.3); GFR 74.9; POTASSIUM 3.7 mmol/L (3.5-5.1)
[2020-07-18 21:29] LABS: ALBUMIN 3.5 g/dL (3.4-5.0); DIRECT BILIRUBIN 0.1 mg/dL (0.0-0.2); MAGNESIUM 2.1 mg/dL (1.8-2.4); TOTAL BILIRUBIN 0.3 mg/dL (0.2-1.0); TOTAL PROTEIN 7.1 g/dL (6.4-8.2)
[2020-07-18 21:40] LABS: PLT ESTIMATE ADEQUATE (ADEQUATE)
[2020-07-18 21:43] LABS: ANISOCYTOSIS MOD; HYPOCHROMIA MARKED; MICROCYTOSIS MARKED; POIKILOCYTOSIS MOD; POLYCHROMASIA SLIGHT
[2020-07-18 21:44] LABS: OVALOCYTES FEW
--- NOTE | 2020-07-18 22:37 | NUR ---
The patient, IGGY BURTON, 40 y/o, M admitted by FRANCK COMBS MD, was given written information regarding hospital policies, unit procedures and contact persons. Valuables were checked and left with patient.
[2020-07-18 22:42] VITALS: BP 175/98
[2020-07-18] MEDS ORDERED: AMLO-187 PO (22:57)
[2020-07-18] MEDS ORDERED: GABA600T7 PO (22:57)
[2020-07-18] MEDS ORDERED: CARV6.2541 PO (22:57)
[2020-07-18] MEDS ORDERED: LOSA100T14 PO (23:01)
[2020-07-18] MEDS ORDERED: ESCITALOPRAM OX10 MG PO (23:01)
[2020-07-18 23:10] LABS: BACTERIA,URINE 0 /HPF (0-FEW); BILIRUBIN,URINE NEG (NEG); CLARITY,URINE CLEAR; COLOR,URINE YELLOW; GLUCOSE,URINE NEG (NEG); NITRITE,URINE NEG (NEG); RBC,URINE 0 /HPF (0-2); UROBILINOGEN,URINE 0.2 mg/dL (0.2 mg/dL); WBC,URINE RARE /HPF (0-4)
--- NOTE | 2020-07-18 23:42 | NUR ---
TRANSFUSION NURSES NOTE Blood transfusion started at 2342. Tubing primed with normal saline and then primed with blood. Transfusion started at 60mL/hr, patient monitored closely x15 min. No reaction noted, transfusion increased to 150mL/hr.
[2020-07-18 23:57] VITALS: BP 161/93
[2020-07-19] VITALS (13 sets, daily range): BP systolic 122–176; BP diastolic 69–104
[2020-07-19] MEDS ORDERED: LORazepam 0.5 MG TABLET PO PRN (01:15)
--- NOTE | 2020-07-19 02:26 | NUR ---
END TRANSFUSION Pt 1U PRBC completed. Tolerated well, VS as recorded in transfusion log.
[2020-07-19 03:09] LABS: HEMATOCRIT 21.6 % (39.0-53.0)
[2020-07-19 03:14] LABS: HEMOGLOBIN 6.5 g/dL (13.0-17.5)
--- NOTE | 2020-07-19 03:52 | NUR ---
TRANSFUSION NURSES NOTE Blood transfusion started at 0335. Tubing primed with normal saline and then primed with blood. Transfusion started at 60mL/hr, patient monitored closely x15 min. No reaction noted, transfusion increased to 150mL/hr.
[2020-07-19] MEDS ORDERED: THIAMINE INJ 100 MG in IV NORMAL SALINE 50ML 50 ML IV ONE (06:00)
[2020-07-19] MEDS ORDERED: THIAMINE 200 MG/2 ML VIAL. IV ONE (06:31)
--- NOTE | 2020-07-19 07:08 | NUR ---
END TRANSFUSION Transfusion complete 3431. No transfusion reaction.
[2020-07-19] MEDS ORDERED: CARVEDILOL 6.25 MG TABLET PO SCH (08:00)
[2020-07-19] MEDS: PANTOPRAZOLE IV 40 MG VIAL. IVP SCH (08:10)
[2020-07-19] MEDS: GABAPENTIN 300 MG CAPSULE. PO SCH ×3 (08:11→19:47)
[2020-07-19] MEDS: amLODIPine BESYLATE 10 MG TABLET PO SCH (08:11)
[2020-07-19] MEDS: FAMOTIDINE 20 MG/2 ML VIAL IVP SCH ×2 (08:11→19:47)
[2020-07-19] MEDS: CITALOPRAM 20 MG TABLET. PO SCH (08:11)
[2020-07-19] MEDS: LOSARTAN 50 MG TABLET. PO SCH (08:12)
[2020-07-19 08:19] LABS: FECAL OB PT POSITIVE (NEG)
[2020-07-19 08:30] LABS: BASO % 1 % (0-3); EOS # 0.1 x10^3/uL (0.0-0.7); EOS % 1 % (0-3); HEMATOCRIT 23.4 % (39.0-53.0); HEMOGLOBIN 7.3 g/dL (13.0-17.5); LYMPH # 1.9 x10^3/uL (1.0-4.8); LYMPH % 31 % (24-48); MEAN CORPUSCULAR HEMOGLOBIN 22 pg (25-35); MEAN CORPUSCULAR HGB CONC 31 g/dL (31-37); MEAN CORPUSCULAR VOLUME 70 fL (79-100); MONO # 0.5 x10^3/uL (0.0-1.1); MONO % 8 % (0-9); NEUT # 3.8 x10^3uL (1.8-7.7); NEUT % 60 % (31-73); PLATELET COUNT 242 x10^3/uL (140-400); RED BLOOD COUNT 3.36 x10^6/uL (4.30-5.70); RED CELL DISTRIBUTION WIDTH 24.7 % (11.5-14.5); WHITE BLOOD COUNT 6.3 x10^3/uL (4.0-11.0)
[2020-07-19 08:42] LABS: CALCIUM 7.9 mg/dL (8.5-10.1); CREATININE 0.9 mg/dL (0.7-1.3); GFR 94.4; POTASSIUM 3.8 mmol/L (3.5-5.1)
[2020-07-19 09:01] LABS: ANISOCYTOSIS MARKED
[2020-07-19 09:02] LABS: HYPOCHROMIA MOD; OVALOCYTES FEW
[2020-07-19 09:03] LABS: MICROCYTOSIS MOD
[2020-07-19 09:06] LABS: PLT ESTIMATE ADEQUATE (ADEQUATE)
[2020-07-19] MEDS ORDERED: FERROUS SULFATE 325 MG TABLET. PO SCH (11:45)
--- NOTE | 2020-07-19 16:14 | PN ---
DATE: SUBJECTIVE: A 40-year-old gentleman came in with acute bleed, although appears that he does have a scope done down at [place], noted severe gastritis. The patient is receiving Protonix and Pepcid. He will get a bleeding scan. He had 2 units of packed RBCs feels much better, but we will continue to monitor him. OBJECTIVE: VITAL SIGNS: Blood pressure 129/80, respiratory rate 20, pulse 90, afebrile, still running low-grade temperature of 99.3, unknown etiology there. LUNGS: Otherwise, lungs clear. CARDIOVASCULAR: Stable. ABDOMEN: Soft, diffuse tenderness, but no rebound or guarding. Positive bowel sounds, positive Hemoccult. LABORATORY DATA: Hemoglobin went from 5.6, up to 7.3; white count stable, has high retic count. The patient continued to be monitored carefully, make further evaluation. Get bleeding scan nuclear done today. IMPRESSION: Acute gastrointestinal bleed, possible severe gastritis, history of alcoholism, iron deficiency as well as anemia, may need further workup on this later on possibly for thalassemia or some other abnormality as well hematologically, otherwise stable and making good progress. FRANCK COMBS MD DR: KENZIE/emerita JOB#: [id number] / [id number]
[2020-07-19] MEDS: CARVEDILOL 12.5 MG TABLET PO SCH (17:16)
--- NOTE | 2020-07-19 17:47 | RAD ---
Study: NUCLEAR MEDICINE TAGGED RBC SCAN Clinical Indication: Bright red blood per rectum. Technique: Patient was injected with 22.0 mCi of technetium 99m labeled red blood cells. Anterior dyn amic images of the abdomen were then obtained for 60 minutes. Findings: At around 30 minutes, there is faint radiotracer activity to the left of the aortic bifurcation but t his does not gradually accumulate or propagate typical of a gastrointestinal hemorrhage. The overall distribution of radiotracer on the obtained images is expected. IMPRESSION: No scintigraphic evidence for a brisk gastrointestinal bleed. Electronically signed by: NEETU BROWN MD (07/19/2020 5:44 PM) [id number]
--- NOTE | 2020-07-20 03:55 | NUR ---
Nursing note: Pt rested comfortably through much of shift. Pt's brought in meal. VSS, as noted.
[2020-07-20 05:56] VITALS: BP 145/84
[2020-07-20 07:31] LABS: BASO % 0 % (0-3); EOS # 0.1 x10^3/uL (0.0-0.7); EOS % 2 % (0-3); HEMATOCRIT 23.6 % (39.0-53.0); HEMOGLOBIN 7.6 g/dL (13.0-17.5); LYMPH # 1.7 x10^3/uL (1.0-4.8); LYMPH % 27 % (24-48); MEAN CORPUSCULAR HEMOGLOBIN 22 pg (25-35); MEAN CORPUSCULAR HGB CONC 32 g/dL (31-37); MEAN CORPUSCULAR VOLUME 69 fL (79-100); MONO # 0.5 x10^3/uL (0.0-1.1); MONO % 7 % (0-9); NEUT % 63 % (31-73); PLATELET COUNT 258 x10^3/uL (140-400); RED BLOOD COUNT 3.43 x10^6/uL (4.30-5.70); WHITE BLOOD COUNT 6.3 x10^3/uL (4.0-11.0)
[2020-07-20 07:40] LABS: CALCIUM 7.8 mg/dL (8.5-10.1); CREATININE 0.9 mg/dL (0.7-1.3); GFR 94.4; POTASSIUM 4.2 mmol/L (3.5-5.1)
[2020-07-20] MEDS: PANTOPRAZOLE IV 40 MG VIAL. IVP SCH (07:49)
[2020-07-20] MEDS: LOSARTAN 50 MG TABLET. PO SCH (07:49)
[2020-07-20] MEDS: CITALOPRAM 20 MG TABLET. PO SCH (07:50)
[2020-07-20] MEDS: GABAPENTIN 300 MG CAPSULE. PO SCH (07:50)
[2020-07-20] MEDS: amLODIPine BESYLATE 10 MG TABLET PO SCH (07:50)
[2020-07-20] MEDS: CARVEDILOL 12.5 MG TABLET PO SCH (07:51)
[2020-07-20] MEDS ORDERED: FERROUS SULFATE 325 MG TABLET. PO SCH (08:00)
[2020-07-20] MEDS ORDERED: CHOLECALCIFEROL (VITAMIN D3) 1,000 UNIT TABLET PO SCH ×2 (09:00)
[2020-07-20 10:53] VITALS: BP 131/79
[2020-07-20] MEDS ORDERED: PANT40VI16 PO (11:23)
[2020-07-20] MEDS ORDERED: FERR325T72 PO (11:23)
[2020-07-20] MEDS ORDERED: FAMO40TA4 PO (11:23)
[2020-07-20] MEDS ORDERED: CARV25TA PO (11:23)
[2020-07-20] MEDS ORDERED: AZIT1PAC PO (11:24)
--- NOTE | 2020-07-20 11:40 | NUR ---
PT'S IV WERE DISCONTINUED. PTS BELONGINGS WERE SENT WITH PATIENT. PT SIGNED DISCHARGE PAPERWORK AND WAS WALKED TO THE FRONT DOOR. PTS VITALS WERE STABLE AT TIME OF DISCHARGE, REFER TO CHART.
[2020-07-20] MEDS ORDERED: NALT50TA PO (12:21)
[2020-07-20 13:02] LABS: RED CELL DISTRIBUTION WIDTH 24.2 % (11.5-14.5)
--- NOTE | 2020-07-21 10:09 | NUR ---
IP: notified patient of COVID result. Discussed precautions. There were no question at this time.
== END 2020-07-20 11:45 | disposition home or self-care (01) | DRG 377 ==
LOC: ER 19:49 → 1 SOUTH 21:00
PROVIDERS: ADMIT Family Medicine; ATTEND Family Medicine
PROC: 30233N1 Transfusion of Nonautologous Red Blood Cells into Peripheral Vein, Percutaneous Approach (ICD-10-PCS; principal; 2020-07-18)
DX: K29.71 Gastritis, unspecified, with bleeding (principal); U07.1 COVID-19; F33.1 Major depressive disorder, recurrent, moderate; Z68.42 Body mass index [BMI] 45.0-49.9, adult; E11.9 Type 2 diabetes mellitus without complications; Z87.891 Personal history of nicotine dependence; F10.10 Alcohol abuse, uncomplicated; E55.9 Vitamin D deficiency, unspecified; E53.8 Deficiency of other specified B group vitamins; I10 Essential (primary) hypertension; F34.1 Dysthymic disorder; K21.9 Gastro-esophageal reflux disease without esophagitis; D50.9 Iron deficiency anemia, unspecified; E78.1 Pure hyperglyceridemia
CPT/HCPCS: 36415; 74022; 78278; 80048; 80076; 81001; 82274; 82550; 83690; 83735; 83880; 84443; 84484; 85014; 85018; 85025; 85045; 85379; 85610; 85730; 86705; 86709; 86803; 86850; 86900; 86901; 86920; 87040; 87340; 93005; 96361; 96374; 96375; A9560; C9113; G0480; J0696; J1200; J3490; J7120; P9016; U0003; 99285-25; J7030

== ENCOUNTER → 2021-01-31 | Outpatient (CLI) | payer OTHER ==
[~2021-01-31] MED LIST: AMLO-187 PO; AZIT1PAC PO; CARV25TA PO; CARV6.2541 PO; ESCITALOPRAM OX10 MG PO; FAMO40TA4 PO; FERR325T72 PO; GABA600T7 PO; LOSA100T14 PO; NALT50TA PO; PANT40VI16 PO
[2021-01-31 09:32] LABS: BASO # 0.1 x10^3/uL (0.0-0.2); BASO % 1 % (0-3); EOS # 0.2 x10^3/uL (0.0-0.7); EOS % 2 % (0-3); HEMATOCRIT 40.6 % (39.0-53.0); HEMOGLOBIN 14.1 g/dL (13.0-17.5); LYMPH # 3.5 x10^3/uL (1.0-4.8); LYMPH % 36 % (24-48); MEAN CORPUSCULAR HEMOGLOBIN 29 pg (25-35); MEAN CORPUSCULAR HGB CONC 35 g/dL (31-37); MEAN CORPUSCULAR VOLUME 84 fL (79-100); MONO # 0.5 x10^3/uL (0.0-1.1); MONO % 5 % (0-9); NEUT # 5.5 x10^3uL (1.8-7.7); NEUT % 56 % (31-73); PLATELET COUNT 234 x10^3/uL (140-400); RED BLOOD COUNT 4.84 x10^6/uL (4.30-5.70); RED CELL DISTRIBUTION WIDTH 15.2 % (11.5-14.5); WHITE BLOOD COUNT 9.7 x10^3/uL (4.0-11.0)
[2021-01-31 09:38] LABS: BILIRUBIN,URINE NEG (NEG); CLARITY,URINE CLEAR; COLOR,URINE YELLOW; GLUCOSE,URINE NEG (NEG); NITRITE,URINE NEG (NEG); UROBILINOGEN,URINE 0.2 mg/dL (0.2 mg/dL)
[2021-01-31 09:39] LABS: BACTERIA,URINE 0 /HPF (0-FEW); RBC,URINE RARE /HPF (0-2); WBC,URINE 0 /HPF (0-4)
[2021-01-31 09:52] LABS: ALBUMIN/GLOBULIN RATIO 1.1 (1.0-1.7); CALCIUM 8.5 mg/dL (8.5-10.1); CREATININE 0.7 mg/dL (0.7-1.3); GFR 126.2; POTASSIUM 3.7 mmol/L (3.5-5.1); TOTAL BILIRUBIN 0.8 mg/dL (0.2-1.0); TOTAL PROTEIN 7.7 g/dL (6.4-8.2)
[2021-01-31 22:38] LABS: THYROID STIM HORMONE (TSH) 1.566 uIU/mL (0.358-3.740)
== END ==
LOC: LAB 08:55
PROVIDERS: ATTEND Nurse Practitioner Adult Health
DX: I10 Essential (primary) hypertension (principal); E78.1 Pure hyperglyceridemia; D50.9 Iron deficiency anemia, unspecified; E55.9 Vitamin D deficiency, unspecified; E53.8 Deficiency of other specified B group vitamins; Z68.42 Body mass index [BMI] 45.0-49.9, adult
CPT/HCPCS: 36415; 80053; 80061; 81001; 82728; 83540; 84443; 85025